=== PATIENT | male | born 1945 | race Caucasian/White ===

== ENCOUNTER → 2018-09-17 08:34 | Outpatient (CLI) | payer MEDICARE, OTHER ==
[2015-10-05 06:32] VITALS: BMI 25.7
[~2018-09-17 08:34] MED LIST: BAYER CHEWABLE81 MG PO; CHLORTHALIDONE50 MG PO; FISH OIL 1,0001 CA1 PO; LIPITOR20 MG PO; MULTIPLE VITAMI1 TA1 PO; ZYLOPRIM300 MG PO
== END | disposition home or self-care (01) ==
LOC: D.MRI 08:34
DX: I63.9 Cerebral infarction, unspecified (principal)